=== PATIENT | male | born 1965 | race African-American/Black ===

== ENCOUNTER 2021-04-08 19:30 | Emergency (ER) | payer MEDICAID ==
[~2021-04-08] VITALS: Ht 182.9 cm; Wt 91.0 kg
[2021-04-08 19:35] VITALS: BP 140/90
== END 2021-04-08 22:05 | disposition left against medical advice (07) ==
LOC: ER 19:30
DX: Z53.21 Procedure and treatment not carried out due to patient leaving prior to being seen by health care provider (principal); I49.9 Cardiac arrhythmia, unspecified
CPT/HCPCS: 93005